=== PATIENT | female | born 1995 | race Caucasian/White ===

== ENCOUNTER 2019-02-05 04:08 | Emergency (ER) | payer BC ==
[~2019-02-05] VITALS: Ht 160 cm; Wt 47.6 kg
[2019-02-05] MEDS ORDERED: RANI150T43 PO (04:20)
[2019-02-05] MEDS ORDERED: MAG HYDROX/AL HYDROX/SIMETH 30 ML LIQUID UDC PO ONE (04:45)
[2019-02-05] MEDS ORDERED: LIDOCAINE VISCUS 2% 15 ML UDC MM ONE (04:45)
[2019-02-05] MEDS ORDERED: PANTOPRAZOLE SODIUM 40 MG TABLET.DR PO ONE ×3 (04:45→05:16)
[2019-02-05] MEDS ORDERED: LIDOCAINE VISCUS 2% 15 ML UDC ONE ×2 (04:53→05:16)
[2019-02-05] MEDS ORDERED: MAGNESIUM HYDROXIDE 30 ML LIQUID UDC ONE (04:53)
[2019-02-05] MEDS ORDERED: MAG HYDROX/AL HYDROX/SIMETH 30 ML LIQUID UDC ONE ×2 (04:56→05:16)
[2019-02-05 05:00] LABS: *BILIRUBIN,URIN NEGATIVE (NEGATIVE); *BLOOD, URINE NEGATIVE (NEGATIVE); *CLARITY,URINE TURBID (CLEAR); *COLOR,URINE YELLOW (YELLOW); *KETONES,URINE NEGATIVE (NEGATIVE); *UROBILINOGEN,URINE 0.2 E.U./dl (NORMAL); LEUKOCYTE ESTERASE ,URINE NEGATIVE (NEGATIVE); NITRITE, URINE NEGATIVE (NEGATIVE); PH,URINE 6.5 (5.0-8.0); UGLUCOSE NEGATIVE (NEGATIVE)
[2019-02-05 05:08] LABS: *URINE HCG, QUAL NEGATIVE (NEGATIVE); BACTERIA,URINE FEW /HPF (NONE SEEN); MUCUS,URINE MODERATE /LPF (0-FEW); RBC,URINE 0-3 /HPF (0-3); SQUAMOUS EPITHELIAL CELL,UR MANY /HPF (NONE SEEN)
--- NOTE | 2019-02-05 05:40 | NUR ---
Patient discharged to home in stable conditon. Written and verbal after care instructions given. Patient verbalizes understanding of instructions. Pt. d/c w/ prescription per MD order, d/c papers signed, all nora w/ pt., ID band removed, ambulated off unit accompanied by male event sales assistant, RENÉ
== END 2019-02-05 05:57 | disposition home or self-care (01) ==
LOC: ER 04:14
DX: R10.13 Epigastric pain (principal); K21.9 Gastro-esophageal reflux disease without esophagitis; Z79.899 Other long term (current) drug therapy
CPT/HCPCS: 84703; A4663